=== PATIENT | male | born 1945 | race Caucasian/White ===

== ENCOUNTER 2017-02-05 08:46 | Emergency (ER) | payer SELFPAY ==
[~2017-02-05] VITALS: Ht 172.7 cm; Wt 81.6 kg
[2017-02-05] MEDS ORDERED: Acetaminophen 500mg (ES) tab ORAL ONE (09:15)
[2017-02-05 09:45] VITALS: BP 124/77
[2017-02-05 11:53] VITALS: BP 124/77
--- NOTE | 2017-02-06 14:55 | Emergency Room Report ---
History of Present Illness General Chief Complaint: General Complaint Source: Patient Present Illness HPI 71-year-old male presents ED for evaluation. Patient brought by EMS. Patient states he's been walking overnight and from [place]. Notes pain in both of his feet. 7/10, throbbing, nonradiating. Patient is homeless. States he is hungry. Denies chest pain or shortness of breath. Denies fevers or chills. No other aggravating relieving factors. Denies any other associated symptoms Allergies: Coded Allergies: No Known Allergies (Unverified , 02/05/17) Patient History Past Medical History: none Past Surgical History: none Pertinent Family History: none Social History: Denies: smoking, alcohol use, drug use Immunizations: UTD Reviewed Nursing Documentation: PMH: Agreed, PSxH: Agreed Nursing Documentation-PMH Past Medical History: No Stated History Review of Systems All Other Systems: negative except mentioned in HPI Physical Exam Vital Signs Date Time Temp Pulse Resp B/P (MAP) Pulse Ox O2 Delivery O2 Flow Rate FiO2 02/05/17 08:43 96.8 80 18 116/67 98 Room Air Sp02 EP Interpretation: reviewed, normal General Appearance: no apparent distress, alert, GCS 15, non-toxic Head: normocephalic, atraumatic Eyes: bilateral eye normal inspection, bilateral eye PERRL ENT: hearing grossly normal, normal pharynx, no angioedema, normal voice Neck: full range of motion, supple/symm/no masses Respiratory: chest non-tender, lungs clear, normal breath sounds, speaking full sentences Cardiovascular #1: regular rate, rhythm, no edema Cardiovascular #2: 2+ carotid (R), 2+ carotid (L), 2+ radial (R), 2+ radial (L) , 2+ dorsalis pedis (R), 2+ dorsalis pedis (L) Gastrointestinal: normal bowel sounds, non tender, soft, non-distended, no guarding, no rebound Rectal: deferred Genitourinary: normal inspection, no CVA tenderness Musculoskeletal: back normal, gait/station normal, normal range of motion, non- tender Neurologic: alert, oriented x3, responsive, motor strength/tone normal, sensory intact, speech normal Psychiatric: judgement/insight normal, memory normal, mood/affect normal, no suicidal/homicidal ideation Reflexes: 3+ bicep (R), 3+ bicep (L), 3+ tricep (R), 3+ tricep (L), 3+ knee (R) , 3+ knee (L) Skin: normal color, no rash, warm/dry, well hydrated Lymphatic: no adenopathy Medical Decision Making Diagnostic Impression: Primary Impression: Weakness ER Course 71-year-old male presents ED complaining of bilateral foot pain, feeling tired and hungry Differential-soft tissue contusion, fracture, dislocation Patient placed on stretcher. After initial history and exam reveals an elderly male in no acute distress. Physical exam is unremarkable. No signs of acute injury. Vital stable. Patient given sandwich. Allowed to rest. Given Tylenol for pain Patient given referral for alf placement. Patient is stable for discharge Diagnoses-weakness stable and discharged to home. Followup with PMD. Return if symptoms recur or worsen Last Vital Signs Date Time Temp Pulse Resp B/P (MAP) Pulse Ox O2 Delivery O2 Flow Rate FiO2 02/05/17 11:53 96.8 75 15 124/77 100 Room Air Status: improved Disposition: HOME, SELF-CARE Condition: Stable Patient Instructions: Yadiel [id number] SONAL PARIS M.D. Feb 06, 2017 14:55
== END 2017-02-05 11:55 | disposition home or self-care (01) ==
LOC: EDBD 08:46 → EMR 09:05
DX: M79.672 Pain in left foot (principal); M79.671 Pain in right foot; R53.1 Weakness
CPT/HCPCS: 82962; 99283